=== PATIENT | male | born 1960 | race Caucasian/White ===

== ENCOUNTER 2023-08-25 00:09 | Emergency (ER) | payer MEDICARE, OTHER ==
[~2023-08-25] VITALS: Ht 177.8 cm; Wt 55.8 kg
[2023-08-25] MEDS ORDERED: DIATR MEGLU/DIATRIZOATE SODIUM 30 ML BOTTLE (GASTROGRAPHIN) ONE (00:45)
[2023-08-25 02:28] VITALS: BP 105/64; TEMP 98.9; O2SAT 99
== END 2023-08-25 02:29 | disposition home health service (06) ==
LOC: ER 00:23
DX: K94.23 Gastrostomy malfunction (principal); I10 Essential (primary) hypertension
CPT/HCPCS: 99284; 43762; 74018; Q9963